=== PATIENT | female | born 1945 | race Caucasian/White ===

== ENCOUNTER 2019-04-23 08:24 | Emergency (ER) | payer MEDICARE, OTHER ==
[~2019-04-23] VITALS: Ht 167.6 cm; Wt 65.0 kg
[~2019-04-23 08:24] MED LIST: DOXY100T PO; PRED10TA PO; THYR
[2019-04-23 08:30] VITALS: BP 158/86
[2019-04-23] MEDS ORDERED: KETOROLAC 30 MG/1 ML ONE (08:46)
[2019-04-23] MEDS ORDERED: DIAZEPAM 5 MG TABLET ONE (08:46)
--- NOTE | 2019-04-23 08:53 | NUR ---
PT TO RAD
[2019-04-23] MEDS ORDERED: KETOROLAC 30 MG/1 ML IM ONE (09:00)
[2019-04-23] MEDS ORDERED: DIAZEPAM 5 MG TABLET PO ONE (09:00)
== END 2019-04-23 09:35 | disposition home or self-care (01) ==
LOC: ED 09:24
DX: S16.1XXA Strain of muscle, fascia and tendon at neck level, initial encounter (principal); G24.3 Spasmodic torticollis; M47.892 Other spondylosis, cervical region; I48.91 Unspecified atrial fibrillation; J44.9 Chronic obstructive pulmonary disease, unspecified; E03.9 Hypothyroidism, unspecified; Z86.73 Personal history of transient ischemic attack (TIA), and cerebral infarction without residual deficits; F17.210 Nicotine dependence, cigarettes, uncomplicated; X58.XXXA Exposure to other specified factors, initial encounter; Y93.89 Activity, other specified; Y92.89 Other specified places as the place of occurrence of the external cause; Y99.8 Other external cause status
CPT/HCPCS: 72050; 96372; 99283; J1885

== ENCOUNTER 2020-02-05 20:16 | Emergency (ER) | payer MEDICARE, OTHER ==
[~2020-02-05] VITALS: Ht 165.1 cm; Wt 71.6 kg
--- NOTE | 2020-02-05 20:33 | NUR ---
PT STATES HAVING LEFT CALF PAIN FOR ABOUT A MONTH. PT STATES HAVING APPOINTMENT WITH [facility] NEXT WEEK, BUT SPOKE WITH HER DOC (BAYRON KELLY) LAST NIGHT AND WAS TOLD TO COME INTO ED TO GET IT CHECKED OUT NOW. PT STATES ITS NOT PAIN BUT "HEAVY" FEELING. PT AMBULATORY. RESTING IN BED
[2020-02-05 21:12] LABS: BASOPHILS % (AUTO) 1 % (0-1); EOSINOPHILS % (AUTO) 6 % (1-7); LYMPHOCYTES % (AUTO) 29 % (22-44); MEAN CORPUSCULAR HEMOGLOBIN 29.8 pg (27.0-34.8); MEAN CORPUSCULAR HGB CONC 33.4 g/dL (32.4-35.8); MEAN PLATELET VOLUME 9.7 fL (7.4-10.4); MONOCYTES % (AUTO) 9 % (2-9); NEUTROPHILS % (AUTO) 55 % (42-75); PLATELET COUNT 138 x10^3/uL (130-400); RED BLOOD COUNT 5.35 x10^6/uL (3.82-5.3); RED CELL DISTRIBUTION WIDTH 13.7 % (9.6-15.2)
[2020-02-05 21:13] LABS: MD NO
[2020-02-05 21:21] LABS: ALANINE AMINOTRANSFERASE 112 U/L (12-78); ALBUMIN 3.2 g/dL (3.4-5.0); ANION GAP 2 mmol/L (5-15); CALCIUM 9.5 mg/dL (8.5-10.1); CHLORIDE 109 mmol/L (98-107); CREATININE 0.75 mg/dL (0.55-1.02)
[2020-02-05 21:23] LABS: ALKALINE PHOSPHATASE 357 U/L (45-117); BILIRUBIN,TOTAL 0.3 mg/dL (0.2-1.0); TOTAL PROTEIN 6.8 g/dL (6.4-8.2)
[2020-02-05 22:14] VITALS: BP 155/88
--- NOTE | 2020-02-05 22:17 | NUR ---
PT STATES FEELING BETTER AND IS READY TO GO HOME, AND IS LAUGHING AND JOKING WITH THIS RN
== END 2020-02-05 22:43 | disposition home or self-care (01) ==
LOC: ED 20:53
DX: M79.672 Pain in left foot (principal); F17.210 Nicotine dependence, cigarettes, uncomplicated; R94.31 Abnormal electrocardiogram [ECG] [EKG]; I48.91 Unspecified atrial fibrillation; J44.9 Chronic obstructive pulmonary disease, unspecified; E03.9 Hypothyroidism, unspecified; Z86.73 Personal history of transient ischemic attack (TIA), and cerebral infarction without residual deficits; Z85.3 Personal history of malignant neoplasm of breast
CPT/HCPCS: 36415; 80053; 85025; 93005; 99285; 99406